=== PATIENT | male | born 1960 | race African-American/Black ===

== ENCOUNTER 2017-10-02 09:20 | Inpatient (IN) | payer OTHER ==
[2017-10-02 11:22] VITALS: BMI 26.4
--- NOTE | 2017-10-02 14:11 | HP ---
CIWA Score - CIWA Score Nausea/Vomitin-No Nausea/No Vomiting (DI[facility]HEA ONLY.) Muscle Tremors: 4-Moderate,w/Arms Extend Anxiety: 5 Agitation: 4-Moderately Restless Paroxysmal Sweats: No Perspiration Orientation: 0-Oriented Tacttile Disturbances: 0-None Auditory Disturbances: 0-None Visual Disturbances: 0-None Headache: 0-None Present CIWA-Ar Total Score: 13 Admission ROS S - HPI Chief Complaint: ALCOHOL WITHDRAWAL SX Allergies/Adverse Reactions: Allergies Allergy/AdvReac Type Severity Reaction Status Date / Time No Known Allergies Allergy Verified 10/02/17 11:45 History of Present Illness: 57 Y/O AA/MALE WITH A HX OF ALCOHOL DEPENDENCE SEEKING DETOX TX. THIS IS PT'S FIRST TIME HERE BUT REPORTS HAS BEEN TO DETOX/REHAB IN THE PAST. PT REPORTS LONGEST PERIOD OF SOBRIETY OF 3 YRS. PT REPORTS HX HTN AND WAS ON LISINOPRIL BUT HAS NOT TAKEN IN A MONTH. PT REPORTS HE GOES TO THE [facility] WHEN NEEDED FOR MEDICAL MANAGEMENT. Exam Limitations: No Limitations - Ebola screening Have you traveled outside of the country in the last 21 days: No (N) Have you had contact with anyone from an Ebola affected area: No Have you been sick,other than usual withdrawal symptoms: No Do you have a fever: No - Review of Systems Constitutional: Chills, Night Sweats, Other (WEIGHT FLUCTUATS.) EENT: reports: Blurred Vision, Dental Problems (MISSING TEETH/CAVITIES) Respiratory: reports: No Symptoms reported Cardiac: reports: Lightheadedness GI: reports: Diarrhea, Nausea, Poor Fluid Intake, Vomiting : reports: Dysuria Musculoskeletal: reports: Back Pain, Joint Pain, Muscle Pain Integumentary: reports: No Symptoms Reported Neuro: reports: Headache, Tremors, Dizziness Endocrine: reports: No Symptoms Reported Hematology: reports: No Symptoms Reported Psychiatric: reports: Orientated x3, Depressed Other Systems: Reviewed and Negative Patient History - Patient Medical History Hx Anemia: No Hx Asthma: No Hx Chronic Obstructive Pulmonary Disease (COPD): No Hx Cardiac Disorders: No Hx Hypertension: Yes (NON-COMPLIANT WITH MEDICATIONS-LISINOPRIL 10 MG DAILY) Hx Hypercholesterolemia: No HX Cerebrovascular Accident: No Hx Seizures: No Hx Diabetes: No Hx Gastrointestinal Disorders: No Hx Genitourinary Disorders: No Hx Sexually Transmitted Disorders: Yes (SYPHILLIS AND WAS TREATED;"LOW TITRE, LAST TIME") Hx Renal Disease (ESRD): No Hx Thyroid Disease: No Hx Human Immunodeficiency Virus (HIV): No (NEGATIVE HX) Hx Hepatitis C: No (NEGATIVE) Hx Depression: Yes (HAVE NOT TAKEN MED IN 20 YRS) Hx Suicide Attempt: No (DENIES S/I) Hx Bipolar Disorder: No Hx Schizophrenia: No - Patient Surgical History Past Surgical History: Yes Hx Neurologic Surgery: No Hx Cataract Extraction: No Hx Cardiac Surgery: No Hx Lung Surgery: No Hx Breast Surgery: No Hx Breast Biopsy: No Hx Abdominal Surgery: No Hx Appendectomy: No Hx Cholecystectomy: No Hx Genitourinary Surgery: No Hx Orthopedic Surgery: No Other Surgical History: LASER SURGERY ON RIGHT EYE Anesthesia Reaction: No - PPD History Previous Implant?: Yes Documented Results: Positive w/o proof Implanted On Prior [facility] Admission?: No Results: CXR TBD PPD to be Administered?: No - Reproductive History Patient is a Female of Child Bearing Age (11 -55 yrs old): No (MALE) - Smoking Cessation Smoking history: Current some day smoker Have you smoked in the past 12 months: Yes Aproximately how many cigarettes per day: 1 Hx Chewing Tobacco Use: No Initiated information on smoking cessation: Yes 'Breaking Loose' booklet given: 10/02/17 - Substance & Tx. History Hx Alcohol Use: Yes (VODKA/BEER/WINE) Substance Use Type: Alcohol Hx Substance Use Treatment: Yes (LAST TX AT [facility]) - Substances Abused Alcohol Route: Oral Frequency: Daily Amount used: 2 6 PACK OF BEER, 1 PINT OF VODKA/RUM Age of first use: 4 Date of Last Use: 10/01/17 Family Disease History - Family Disease History Family Disease History: Other: Mother (HTN;) Admission Physical Exam BHS - Vital Signs Vital Signs: Vital Signs - 24 hr 10/02/17 11:20 Temperature 97.7 F Pulse Rate 77 Respiratory 20 Rate Blood Pressure 144/87 - Physical General Appearance: Yes: Moderate Distress, Irritable, Anxious HEENTM: Yes: EOMI, Normocephalic, JAY, Pharynx Normal Respiratory: Yes: Chest Non-Tender, Lungs Clear, Normal Breath Sounds, No Respiratory Distress Neck: Yes: Supple, Trachea in good position Breast: Yes: Breast Exam Deferred Cardiology: Yes: Regular Rhythm, Regular Rate, S1, S2 Abdominal: Yes: Normal Bowel Sounds, Non Tender, Flat, Soft Genitourinary: Yes: Other (N/C) Back: Yes: Within Normal Limits Musculoskeletal: Yes: full range of Motion, Gait Steady Extremities: Yes: Normal Range of Motion, Non-Tender Neurological: Yes: miller apprentice II-XII NML intact, Fully Oriented, Alert, Motor Strength 5/5 Integumentary: Yes: Dry, Warm Lymphatic: Yes: Within Normal Limits - Diagnostic (1) Alcohol dependence with uncomplicated withdrawal Current Visit: Yes Status: Acute (2) Hypertension Current Visit: Yes Status: Chronic Qualifiers: Hypertension type: essential hypertension Qualified Code(s): I10 - Essential (primary) hypertension (3) Hx of syphilis Current Visit: Yes Status: Resolved Cleared for Admission [facility] - Detox or Rehab [facility] Level of Care: Medically Managed Detox Regimen/Protocol: Librium [facility] Breath Alcohol Content Breath Alcohol Content: 0.073 Urine Drug Screen - Results Drug Screen Negative: Yes
[2017-10-02] MEDS ORDERED: ACETAMINOPHEN 325 MG TABLET (FP) PO PRN (14:36)
[2017-10-02] MEDS ORDERED: MAG HYDROX/AL HYDROX/SIMETH 30 ML UNIT-DOSE CUP PO PRN (14:36)
[2017-10-02] MEDS ORDERED: P-EPHED 60MG/TRIPROLIDI 2.5MG TABLET PO PRN (14:36)
[2017-10-02] MEDS ORDERED: MENTHOL/PHENOL 1 EACH UD MM PRN (14:36)
[2017-10-02] MEDS ORDERED: MAGNESIUM HYDROX 2400MG/30ML ORAL SUSPENSION 30 ML CUP PO PRN (14:36)
[2017-10-02] MEDS ORDERED: guaiFENesin/D-METHORPHAN HB 10 ML UNIT-DOSE CUPS PO PRN (14:36)
[2017-10-02] MEDS ORDERED: hydrOXYzine PAMOATE 50 MG CAPSULE (FP) PO PRN (14:36)
[2017-10-02] MEDS ORDERED: MAGNESIUM CITRATE 300 ML BOTTLE PO PRN (14:36)
[2017-10-02] MEDS ORDERED: chlordiazePOXIDE HCL 25 MG CAPSULE PO PRN (14:36)
[2017-10-02] MEDS ORDERED: chlordiazePOXIDE HCL 25 MG CAPSULE PO ONE (15:15)
[2017-10-02] MEDS: chlordiazePOXIDE HCL 25 MG CAPSULE PO SCH ×2 (17:38→22:14)
[2017-10-02] MEDS: LISINOPRIL 10 MG TABLET (FP) PO SCH (17:38)
[2017-10-02] MEDS ORDERED: MELATONIN 5 MG TABLETS PO PRN (22:00)
[2017-10-02] MEDS: THIAMINE HCL 100 MG TABLET (FP) PO SCH (22:14)
[2017-10-02 23:18] LABS: URINE APPEARANCE TURBID; URINE BILIRUBIN NEGATIVE (<2.0 mg/dL); URINE COLOR YELLOW; URINE GLUCOSE (UA) NEGATIVE (NEGATIVE); URINE KETONE NEGATIVE (NEGATIVE); URINE LEUK ESTERASE NEGATIVE (NEGATIVE); URINE NITRITE NEGATIVE (NEGATIVE); URINE PROTEIN NEGATIVE (NEGATIVE)
[2017-10-03] MEDS: chlordiazePOXIDE HCL 25 MG CAPSULE PO SCH ×4 (05:12→22:17)
[2017-10-03] MEDS: LOPERAMIDE HCL 2 MG CAPSULE PO PRN ×2 (10:05→18:05)
[2017-10-03] MEDS: LISINOPRIL 10 MG TABLET (FP) PO SCH ×2 (10:05→22:17)
[2017-10-03] MEDS: PRENATAL VITAMINS W/ FOLIC ACID TABLET (FP) PO SCH (10:05)
[2017-10-03] MEDS: IBUPROFEN 400 MG TABLET (FP) PO PRN (10:06)
[2017-10-03 10:33] LABS: HEMATOCRIT 43.4 % (35.4-49); HEMOGLOBIN 14.1 GM/dL (11.7-16.9); MCH 27.3 pg (25.7-33.7); MCHC 32.6 g/dl (32.0-35.9); MEAN CELL VOLUME 83.9 fl (80-96); MEAN PLT VOLUME 8.7 fl (7.5-11.1); PLATELET COUNT 241 K/MM3 (134-434); RBC 5.17 M/mm3 (4.00-5.60); RDW 15.1 % (11.9-15.9); WHITE BLOOD COUNT 4.5 K/mm3 (4.0-10.0)
[2017-10-03 10:37] LABS: CHLORIDE 108 mmol/L (98-107); POTASSIUM 4.2 mmol/L (3.5-5.1); SODIUM 143 mmol/L (136-145)
[2017-10-03 10:52] LABS: ALBUMIN 4.2 g/dl (3.4-5.0); ALK PHOS 121 U/L (45-117); ANION GAP 10 (8-16); BILIRUBIN,TOTAL 0.6 mg/dL (0.2-1.0); BLOOD UREA NITROGEN 18 mg/dL (7-18); CALCIUM 8.5 mg/dL (8.5-10.1); CO2 25 mmol/L (21-32); GLUCOSE,RANDOM 108 mg/dL (74-106); SGOT/AST 116 U/L (15-37); SGPT/ALT 91 U/L (12-78); TOT PROT 7.9 g/dl (6.4-8.2)
[2017-10-03 11:03] LABS: SICKLE CELL SCREEN NEGATIVE (NEGATIVE)
--- NOTE | 2017-10-03 11:39 | PN ---
[facility] CIWA - CIWA Score Nausea/Vomitin-No Nausea/No Vomiting Muscle Tremors: 2 Anxiety: 4-Mod. Anxious/Guarded Agitation: 3 Paroxysmal Sweats: 3 Orientation: 0-Oriented Tacttile Disturbances: 1-Very Mild Itch/Numbness Auditory Disturbances: 0-None Visual Disturbances: 1-Very Mild Sensitivity Headache: 0-None Present CIWA-Ar Total Score: 14 S Progress Note (SOAP) Subjective: Diarrhea, Anxious, Sweating. Objective: PATIENT A & O X 3, OBSERVED AMBULATING ON UNIT. NO ACUTE DISTRESS. 10/03/17 11:39 Vital Signs Temperature 97.9 F 10/03/17 09:57 Pulse Rate 82 10/03/17 09:57 Respiratory Rate 20 10/03/17 09:57 Blood Pressure 150/88 10/03/17 09:57 O2 Sat by Pulse Oximetry (%) Laboratory Tests 10/02/17 10/03/17 10/03/17 Unknown 06:00 06:00 WBC 4.5 RBC 5.17 Hgb 14.1 Hct 43.4 MCV 83.9 MCH 27.3 MCHC 32.6 RDW 15.1 Plt Count 241 MPV 8.7 Sickle Cell Screen Negative Sodium 143 Potassium 4.2 Chloride 108 H Carbon Dioxide 25 Anion Gap 10 BUN 18 Creatinine 1.0 Creat Clearance w eGFR > 60 Random Glucose 108 H Calcium 8.5 Total Bilirubin 0.6 AST 116 H ALT 91 H Alkaline Phosphatase 121 H Total Protein 7.9 Albumin 4.2 Urine Color Yellow Urine Appearance Turbid Urine pH 5.0 Ur Specific [place] 1.027 Urine Protein Negative Urine Glucose (UA) Negative Urine Ketones Negative Urine Blood Negative Urine Nitrite Negative Urine Bilirubin Negative Urine Urobilinogen 2.0 Ur Leukocyte Esterase Negative LABS NOTED. RPR RESULT PENDING. 10/03/17 11:42 Assessment: 10/03/17 11:40 WITHDRAWAL SYMPTOMS. HYPERTENSION. 10/03/17 11:42 Plan: CONTINUE DETOX. CONTINUE TO MONITOR BP.
--- NOTE | 2017-10-03 13:09 | EKG ---
Test Reason : Blood Pressure : / mmHG Vent. Rate : 072 BPM Atrial Rate : 072 BPM P-R Int : 154 ms QRS Dur : 094 ms QT Int : 424 ms P-R-T Axes : 077 -13 055 degrees QTc Int : 464 ms NORMAL SINUS RHYTHM NORMAL ECG Confirmed by MD DENA, BRYAN ([id number]) on 10/03/2017 1:09:03 PM Referred By: Confirmed By:BRYAN FERNANDES MD
--- NOTE | 2017-10-03 13:14 | EKG ---
Test Reason : Blood Pressure : / mmHG Vent. Rate : 066 BPM Atrial Rate : 066 BPM P-R Int : 140 ms QRS Dur : 090 ms QT Int : 452 ms P-R-T Axes : 055 -12 042 degrees QTc Int : 473 ms SINUS RHYTHM WITH PREMATURE ATRIAL COMPLEXES SEPTAL INFARCT , AGE UNDETERMINED ABNORMAL ECG NO PREVIOUS ECGS AVAILABLE Confirmed by MD DENA, BRYAN ([id number]) on 10/03/2017 1:14:19 PM Referred By: Confirmed By:BRYAN FERNANDES MD
--- NOTE | 2017-10-03 18:49 | CONSULT ---
[facility] Psychiatric Consult - Data Date of interview: 10/03/17 Admission source: [facility] Identifying data: First admission to [facility] for this 57 y/o AA male seeking detox treatment on for alcohol dependence.Patient is ,a father of three,homeless,unemployed and supported on SSI benefits.Mr Lin indicates that he is [employer] (served from 1975 to 1980).Honorably discharged (self-report). Substance Abuse History: Confirmed by patient in my interview.Smoking history: Current some day smoker. Have you smoked in the past 12 months: Yes. Aproximately how many cigarettes per day: 1. Hx Chewing Tobacco Use: No. Initiated information on smoking cessation: Yes. 'Breaking Loose' booklet given : 10/02/17. - Substance & Tx. History. Hx Alcohol Use: Yes (VODKA/BEER/WINE). Substance Use Type: Alcohol. Hx Substance Use Treatment: Yes (LAST TX AT [facility]). - Substances Abused. Alcohol. Route: Oral. Frequency: Daily. Amount used: 2 6 PACK OF BEER, 1 PINT OF VODKA/RUM. Age of first use: 4. Date of Last Use: 10/01/17 Medical History: Hypertension and a history treatment for syphilis + eye surgery (laser). Psychiatric History: No history of psychiatric hospitalizations.Reportedly diagnoised with PTSD.Patient states that he used to be managed on an antidepressant medication (name not recalled).Has not taken psychtropic medications for several months.Lost to follow up.Mr Lin reports previous contacts with various [facility] OPD clinics but his most recent follow up was at the [facility] mental health clinic.Patient denies history of suicide attempts. Physical/Sexual Abuse/Trauma History: of .Coping well.Fathered three children after the of spouse. Additional Comment: Drug Screen is negative. Mental Status Exam - Mental Status Exam Alert and Oriented to: Time, Place, Person Cognitive Function: Good Patient Appearance: Well Groomed Mood: Hopeful, Euthymic Affect: Appropriate, Normal Range Patient Behavior: Appropriate, Cooperative Speech Pattern: Clear, Appropriate Voice Loudness: Normal Thought Process: Intact, Goal Oriented Thought Disorder: Not Present Hallucinations: Denies Suicidal Ideation: Denies Homicidal Ideation: Denies Insight/Judgement: Fair Sleep: Well Appetite: Good Muscle strength/Tone: Normal Gait/Station: Normal Psychiatric Findings - Problem List ([place] 1, 2,3) (1) Alcohol dependence with uncomplicated withdrawal Current Visit: Yes Status: Acute (2) Nicotine dependence Current Visit: Yes Status: Acute - Initial Treatment Plan Initial Treatment Plan: Psychoeducation.Sleep hygiene discussed.Detoxification.Observation.
[2017-10-03] MEDS: THIAMINE HCL 100 MG TABLET (FP) PO SCH (22:17)
[2017-10-04] MEDS: chlordiazePOXIDE HCL 25 MG CAPSULE PO SCH ×2 (05:47→10:13)
[2017-10-04] MEDS: PRENATAL VITAMINS W/ FOLIC ACID TABLET (FP) PO SCH (10:13)
[2017-10-04] MEDS: LISINOPRIL 10 MG TABLET (FP) PO SCH ×2 (10:13→22:19)
[2017-10-04] MEDS: IBUPROFEN 400 MG TABLET (FP) PO PRN (10:15)
--- NOTE | 2017-10-04 16:21 | PN ---
[facility] CIWA - CIWA Score Nausea/Vomitin-No Nausea/No Vomiting Muscle Tremors: None Anxiety: 4-Mod. Anxious/Guarded Agitation: 3 Paroxysmal Sweats: 3 Orientation: 0-Oriented Tacttile Disturbances: 2-Mild Itch/Numbness/Burn Auditory Disturbances: 0-None Visual Disturbances: 1-Very Mild Sensitivity Headache: 0-None Present CIWA-Ar Total Score: 13 S Progress Note (SOAP) Subjective: Diarrhea, Anxious, Sweating. Objective: PATIENT A & O X 3, OBSERVED AMBULATING ON UNIT. NO ACUTE DISTRESS. 10/04/17 16:21 Vital Signs Temperature 98.6 F 10/04/17 13:53 Pulse Rate 87 10/04/17 13:53 Respiratory Rate 20 10/04/17 13:53 Blood Pressure 142/93 10/04/17 13:53 O2 Sat by Pulse Oximetry (%) Laboratory Tests 10/02/17 10/03/17 10/03/17 Unknown 06:00 06:00 WBC 4.5 RBC 5.17 Hgb 14.1 Hct 43.4 MCV 83.9 MCH 27.3 MCHC 32.6 RDW 15.1 Plt Count 241 MPV 8.7 Sickle Cell Screen Negative Sodium 143 Potassium 4.2 Chloride 108 H Carbon Dioxide 25 Anion Gap 10 BUN 18 Creatinine 1.0 Creat Clearance w eGFR > 60 Random Glucose 108 H Calcium 8.5 Total Bilirubin 0.6 AST 116 H ALT 91 H Alkaline Phosphatase 121 H Total Protein 7.9 Albumin 4.2 Urine Color Yellow Urine Appearance Turbid Urine pH 5.0 Ur Specific [place] 1.027 Urine Protein Negative Urine Glucose (UA) Negative Urine Ketones Negative Urine Blood Negative Urine Nitrite Negative Urine Bilirubin Negative Urine Urobilinogen 2.0 Ur Leukocyte Esterase Negative RPR Titer 10/03/17 06:00 WBC RBC Hgb Hct MCV MCH MCHC RDW Plt Count MPV Sickle Cell Screen Sodium Potassium Chloride Carbon Dioxide Anion Gap BUN Creatinine Creat Clearance w eGFR Random Glucose Calcium Total Bilirubin AST ALT Alkaline Phosphatase Total Protein Albumin Urine Color Urine Appearance Urine pH Ur Specific [place] Urine Protein Urine Glucose (UA) Urine Ketones Urine Blood Urine Nitrite Urine Bilirubin Urine Urobilinogen Ur Leukocyte Esterase RPR Titer Nonreactive LABS NOTED. Assessment: 10/04/17 16:21 WITHDRAWAL SYMPTOMS. Plan: CONTINUE DETOX. INCREASE DAILY PO FLUID INTAKE. PRN IMMODIUM FOR DIARRHEA. HEPATIC FUNCTION PANEL ORDERED FOR TOMORROW AM.
[2017-10-04] MEDS: chlordiazePOXIDE 5 MG CAPSULE PO SCH ×2 (19:22→22:19)
[2017-10-04] MEDS: THIAMINE HCL 100 MG TABLET (FP) PO SCH (22:19)
[2017-10-05] MEDS: chlordiazePOXIDE 5 MG CAPSULE PO SCH ×2 (05:21→10:18)
[2017-10-05] MEDS: LISINOPRIL 10 MG TABLET (FP) PO SCH ×2 (10:18→22:05)
[2017-10-05] MEDS: PRENATAL VITAMINS W/ FOLIC ACID TABLET (FP) PO SCH (10:18)
[2017-10-05 10:44] LABS: ALBUMIN 3.3 g/dl (3.4-5.0)
[2017-10-05 10:46] LABS: BILIRUBIN,DIRECT 0.2 mg/dL (0.0-0.2); BILIRUBIN,TOTAL 0.4 mg/dL (0.2-1.0); TOT PROT 6.6 g/dl (6.4-8.2)
--- NOTE | 2017-10-05 11:54 | PN ---
[facility] Progress Note (SOAP) Subjective: Body Aches, Fatigue. Objective: PATIENT A & O X 3, OBSERVED AMBULATING ON UNIT. NO ACUTE DISTRESS. 10/05/17 11:53 Vital Signs Temperature 96.6 F L 10/05/17 09:29 Pulse Rate 82 10/05/17 09:29 Respiratory Rate 18 10/05/17 09:29 Blood Pressure 126/79 10/05/17 09:29 O2 Sat by Pulse Oximetry (%) Laboratory Tests 10/02/17 10/03/17 10/03/17 Unknown 06:00 06:00 WBC 4.5 RBC 5.17 Hgb 14.1 Hct 43.4 MCV 83.9 MCH 27.3 MCHC 32.6 RDW 15.1 Plt Count 241 MPV 8.7 Sickle Cell Screen Negative Sodium 143 Potassium 4.2 Chloride 108 H Carbon Dioxide 25 Anion Gap 10 BUN 18 Creatinine 1.0 Creat Clearance w eGFR > 60 Random Glucose 108 H Calcium 8.5 Total Bilirubin 0.6 Direct Bilirubin AST 116 H ALT 91 H Alkaline Phosphatase 121 H Total Protein 7.9 Albumin 4.2 Urine Color Yellow Urine Appearance Turbid Urine pH 5.0 Ur Specific [place] 1.027 Urine Protein Negative Urine Glucose (UA) Negative Urine Ketones Negative Urine Blood Negative Urine Nitrite Negative Urine Bilirubin Negative Urine Urobilinogen 2.0 Ur Leukocyte Esterase Negative RPR Titer 10/03/17 10/05/17 06:00 07:40 WBC RBC Hgb Hct MCV MCH MCHC RDW Plt Count MPV Sickle Cell Screen Sodium Potassium Chloride Carbon Dioxide Anion Gap BUN Creatinine Creat Clearance w eGFR Random Glucose Calcium Total Bilirubin 0.4 Direct Bilirubin 0.2 AST 29 D ALT 63 D Alkaline Phosphatase 96 D Total Protein 6.6 Albumin 3.3 L Urine Color Urine Appearance Urine pH Ur Specific [place] Urine Protein Urine Glucose (UA) Urine Ketones Urine Blood Urine Nitrite Urine Bilirubin Urine Urobilinogen Ur Leukocyte Esterase RPR Titer Nonreactive LABS NOTED. RESULTS OF HEPATIC FUNCTION PANEL NOTED. 10/05/17 11:54 Assessment: 10/05/17 11:53 WITHDRAWAL SYMPTOMS. Plan: CONTINUE DETOX. PATIENT SCHEDULED FOR D/C TOMORROW.
[2017-10-05] MEDS: chlordiazePOXIDE HCL 10 MG CAPSULE PO SCH ×2 (17:42→22:05)
[2017-10-05] MEDS: THIAMINE HCL 100 MG TABLET (FP) PO SCH (22:05)
[2017-10-06] MEDS: chlordiazePOXIDE HCL 10 MG CAPSULE PO SCH (05:18)
[2017-10-06 09:04] VITALS: BP 150/85; PULSE 100; TEMP 97.7
[2017-10-06] MEDS: IBUPROFEN 400 MG TABLET (FP) PO PRN (10:02)
[2017-10-06] MEDS: LISINOPRIL 10 MG TABLET (FP) PO SCH (10:02)
[2017-10-06] MEDS: PRENATAL VITAMINS W/ FOLIC ACID TABLET (FP) PO SCH (10:02)
--- NOTE | 2017-10-06 14:39 | PN ---
[facility] Progress Note (SOAP) Subjective: Patient denies current Detox symptoms and reports that he feels well overall. Objective: PATIENT A & O X 3, OBSERVED AMBULATING ON UNIT. NO ACUTE DISTRESS. 10/06/17 14:38 Vital Signs Temperature 97.7 F 10/06/17 09:03 Pulse Rate 100 H 10/06/17 09:03 Respiratory Rate 16 10/06/17 09:03 Blood Pressure 150/85 10/06/17 09:03 O2 Sat by Pulse Oximetry (%) Laboratory Tests 10/02/17 10/03/17 10/03/17 Unknown 06:00 06:00 WBC 4.5 RBC 5.17 Hgb 14.1 Hct 43.4 MCV 83.9 MCH 27.3 MCHC 32.6 RDW 15.1 Plt Count 241 MPV 8.7 Sickle Cell Screen Negative Sodium 143 Potassium 4.2 Chloride 108 H Carbon Dioxide 25 Anion Gap 10 BUN 18 Creatinine 1.0 Creat Clearance w eGFR > 60 Random Glucose 108 H Calcium 8.5 Total Bilirubin 0.6 Direct Bilirubin AST 116 H ALT 91 H Alkaline Phosphatase 121 H Total Protein 7.9 Albumin 4.2 Urine Color Yellow Urine Appearance Turbid Urine pH 5.0 Ur Specific [place] 1.027 Urine Protein Negative Urine Glucose (UA) Negative Urine Ketones Negative Urine Blood Negative Urine Nitrite Negative Urine Bilirubin Negative Urine Urobilinogen 2.0 Ur Leukocyte Esterase Negative RPR Titer 10/03/17 10/05/17 06:00 07:40 WBC RBC Hgb Hct MCV MCH MCHC RDW Plt Count MPV Sickle Cell Screen Sodium Potassium Chloride Carbon Dioxide Anion Gap BUN Creatinine Creat Clearance w eGFR Random Glucose Calcium Total Bilirubin 0.4 Direct Bilirubin 0.2 AST 29 D ALT 63 D Alkaline Phosphatase 96 D Total Protein 6.6 Albumin 3.3 L Urine Color Urine Appearance Urine pH Ur Specific [place] Urine Protein Urine Glucose (UA) Urine Ketones Urine Blood Urine Nitrite Urine Bilirubin Urine Urobilinogen Ur Leukocyte Esterase RPR Titer Nonreactive LABS NOTED. Assessment: 10/06/17 14:38 COMPLETION OF DETOX REGIMEN. Plan: PATIENT SCHEDULED FOR DISCHARGE FROM DETOX UNIT TODAY.
--- NOTE | 2017-10-06 14:40 | DS ---
[facility] Detox Discharge Summary Admission Date: 10/02/17 Discharge Date: 10/06/17 - History Present History: Alcohol Dependence Additional Comments: PATIENT GOING TO [facility] ([place], [place] FOR AFTERCARE. PATIENT WAS DISCHARGED FORM DETOX UNIT IN STABLE MEDICAL CONDITION. Pertinent Past History: Nicotine Dependence, Depression, HTN, History of Syphilis (Treated). - Physical Exam Results Vital Signs: Vital Signs Temperature 97.7 F 10/06/17 09:03 Pulse Rate 100 H 10/06/17 09:03 Respiratory Rate 16 10/06/17 09:03 Blood Pressure 150/85 10/06/17 09:03 O2 Sat by Pulse Oximetry (%) Pertinent Admission Physical Exam Findings: WITHDRAWAL SYMPTOMS. Laboratory Tests 10/02/17 10/03/17 10/03/17 Unknown 06:00 06:00 WBC 4.5 RBC 5.17 Hgb 14.1 Hct 43.4 MCV 83.9 MCH 27.3 MCHC 32.6 RDW 15.1 Plt Count 241 MPV 8.7 Sickle Cell Screen Negative Sodium 143 Potassium 4.2 Chloride 108 H Carbon Dioxide 25 Anion Gap 10 BUN 18 Creatinine 1.0 Creat Clearance w eGFR > 60 Random Glucose 108 H Calcium 8.5 Total Bilirubin 0.6 Direct Bilirubin AST 116 H ALT 91 H Alkaline Phosphatase 121 H Total Protein 7.9 Albumin 4.2 Urine Color Yellow Urine Appearance Turbid Urine pH 5.0 Ur Specific [place] 1.027 Urine Protein Negative Urine Glucose (UA) Negative Urine Ketones Negative Urine Blood Negative Urine Nitrite Negative Urine Bilirubin Negative Urine Urobilinogen 2.0 Ur Leukocyte Esterase Negative RPR Titer 10/03/17 10/05/17 06:00 07:40 WBC RBC Hgb Hct MCV MCH MCHC RDW Plt Count MPV Sickle Cell Screen Sodium Potassium Chloride Carbon Dioxide Anion Gap BUN Creatinine Creat Clearance w eGFR Random Glucose Calcium Total Bilirubin 0.4 Direct Bilirubin 0.2 AST 29 D ALT 63 D Alkaline Phosphatase 96 D Total Protein 6.6 Albumin 3.3 L Urine Color Urine Appearance Urine pH Ur Specific [place] Urine Protein Urine Glucose (UA) Urine Ketones Urine Blood Urine Nitrite Urine Bilirubin Urine Urobilinogen Ur Leukocyte Esterase RPR Titer Nonreactive LABS NOTED. - Treatment Hospital Course: Detox Protocol Followed, Detoxed Safely, Responded well, Discharged Condition Good, Rehab Referral Accepted Patient has Accepted a Rehab Referral to: [facility] ([place] - Medication Discharge Medications: Ambulatory Orders Lisinopril 10 mg PO DAILY 30 Days #30 tablet 10/05/17 - Diagnosis (1) History of syphilis Status: Resolved (2) Alcohol dependence with uncomplicated withdrawal Status: Acute (3) Hypertension Status: Chronic Qualifiers: Hypertension type: essential hypertension Qualified Code(s): I10 - Essential (primary) hypertension (4) Nicotine dependence Status: Acute Qualifiers: Nicotine product type: cigarettes Substance use status: uncomplicated Qualified Code(s): F17.210 - Nicotine dependence, cigarettes, uncomplicated - AMA Did Patient Leave Against Medical Advice: No
== END 2017-10-06 10:52 | disposition home or self-care (01) | DRG 775 ==
LOC: YASAS 09:20 → Y3N 14:55
PROVIDERS: ADMIT Surgery; ATTEND Surgery
PROC: HZ2ZZZZ Detoxification Services for Substance Abuse Treatment (ICD-10-PCS; principal; 2017-10-02)
DX: F10.230 Alcohol dependence with withdrawal, uncomplicated (principal); F17.210 Nicotine dependence, cigarettes, uncomplicated; F32.9 Major depressive disorder, single episode, unspecified; I10 Essential (primary) hypertension; Z91.14 Patient's other noncompliance with medication regimen; Z86.19 Personal history of other infectious and parasitic diseases; Z59.0 Homelessness
CPT/HCPCS: 36415; 71046-TC-FY; 80053; 80076; 81003; 85027; 85660; 86593; 93005; 93010